=== PATIENT | female | born 1980 | race Caucasian/White ===

== ENCOUNTER → 2018-11-20 14:14 | Outpatient (CLI) | payer OTHER, SELFPAY | PROVIDERS: Registered Nurse; PCP Family Medicine; Visit Provider Family Medicine | DX: K21.9 Gastro-esophageal reflux disease without esophagitis (principal) | CPT/HCPCS: 83013 ==

== ENCOUNTER → 2018-11-24 09:01 | Outpatient (CLI) | payer OTHER, SELFPAY ==
[2018-11-24 09:57] LABS: Cholesterol 205 mg/dL (140-199); Glucose 89 mg/dL (70-100); HDL Cholesterol 42 mg/dL (40-60); LDL Cholesterol Calculated 141 mg/dL (<100); Triglycerides 108 mg/dL (35-150)
[2018-11-24 10:53] LABS: Thyroid Stimulating Hormone 1.25 uIU/mL (0.47-4.68)
== END ==
PROVIDERS: PCP Family Medicine; Visit Provider Family Medicine
DX: E78.2 Mixed hyperlipidemia (principal); Z13.0 Encounter for screening for diseases of the blood and blood-forming organs and certain disorders involving the immune mechanism; Z13.29 Encounter for screening for other suspected endocrine disorder
CPT/HCPCS: 36415; 80061; 82947; 84443

== ENCOUNTER 2018-11-28 19:13 | Emergency (ER) | payer OTHER, SELFPAY ==
[2018-11-28 19:15] VITALS: BP 134/82; PULSE 78; RESP 15; TEMP 36.8; O2SAT 100; BMI 25.8
--- NOTE | 2018-11-28 19:22 | DI.RAD.S_ITS ---
PROCEDURE: XR CHEST 1V INDICATIONS: chest pain TECHNIQUE: One view of the chest was acquired. COMPARISON: [facility], , CHEST 2 VIEW, 11/04/2012, 13:32. FINDINGS: Surgical changes and devices: None. Lungs and pleura: Lungs are clear. No pleural effusions or pneumothorax. Mediastinum: Mediastinal contours appear normal. Heart size is normal. Bones and chest wall: No suspicious bony lesions. Overlying soft tissues appear unremarkable. IMPRESSION: No acute pulmonary process. Dictated by: Liane Shanks M.D. on 11/28/2018 at 19:52 Approved by: Liane Shanks M.D. on 11/28/2018 at 19:52
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
[2018-11-28 19:58] LABS: Add Manual Diff / Slide Review NO; Basophils Absolute Auto 0 /uL (0-100); Basophils Percent Auto 0.3 % (0-2); Eosinophils Absolute Auto 100 /uL (0-450); Eosinophils Percent Auto 1.4 % (2-4); Hematocrit 39.9 % (36-46); Hemoglobin 13.5 g/dL (12.0-16.0); Lymphocytes Absolute Auto 3300 /uL (1100-4500); Lymphocytes Percent Auto 48.3 % (25-40); Mean Corpuscular HGB Conc 33.8 % (30-36); Mean Corpuscular Hemoglobin 30.1 PG (26-34); Monocytes Absolute Auto 600 /uL (0-900); Monocytes Percent Auto 8.1 % (3-14); Neutrophils Absolute Auto 2900 /uL (1500-7000); Neutrophils Percent Auto 41.9 % (50-75); Platelet Count 196 X10^3/uL (150-400); Red Blood Cell Count 4.48 X10^6/uL (4.0-5.2); Red Cell Distribution Width 12.7 % (11.6-14.8); White Blood Cell Count 6.9 X10^3/uL (4.5-11.0)
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
[2018-11-28 20:05] LABS: Prothrombin Time 11.2 SECONDS (10.1-12.7)
[2018-11-28 20:07] LABS: PTT Partial Thromboplastin Tim 30 SECONDS (26.4-36.2)
[2018-11-28 20:10] LABS: Alanine Aminotransferase 29 IU/L (9-52); Albumin 4.6 g/dL (3.5-5.0); Albumin Globulin Ratio 1.6 (1.0-2.8); Alkaline Phosphatase 68 U/L (38-126); Aspartate Aminotransferase 21 IU/L (14-36); BUN Creatinine Ratio 22.9 (6-22); Bilirubin Total 0.3 mg/dL (0.2-1.3); Blood Urea Nitrogen 16 mg/dL (7-17); Calcium 9.4 mg/dL (8.4-10.2); Carbon Dioxide 26 mmol/L (22-32); Chloride 101 mmol/L (98-107); Creatine Kinase 74 U/L (30-135); Estimated Glomerular Filt Rate > 60.0 mL/min (>60); Globulin 2.8 g/dL (1.7-4.1); Glucose 104 mg/dL (70-100); HEMOLYSIS < 15 (0-50); Lipase 83 U/L (23-300); Potassium 3.3 mmol/L (3.4-5.1); Sodium 138 mmol/L (137-145); Total Protein 7.4 g/dL (6.3-8.2)
[2018-11-28] MEDS: MAG HYDROX/ALUMINUM/SIMETH SUS 20 ML, LIDOCAINE VISCOUS 2% 15 ML PO (20:12)
[2018-11-28 20:21] LABS: Troponin I < 0.012 ng/mL (0.01-0.034)
[2018-11-28 20:27] LABS: D Dimer < 200 ng/mL (<230)
--- NOTE | 2018-11-28 21:46 | PC.NURSE ---
I agree with all assessments and treatments completed by the student nurse.
== END 2018-11-28 21:48 | disposition home or self-care (01) ==
PROVIDERS: Emergency Medicine; Emergency Provider Internal Medicine; PCP Family Medicine
DX: K21.9 Gastro-esophageal reflux disease without esophagitis (principal)
CPT/HCPCS: 71045; 80053; 82550; 83690; 84484; 85025; 85379; 85610; 85730; 93005; 93010; 99282; 99285

== ENCOUNTER 2019-05-27 21:28 | Emergency (ER) | payer OTHER, SELFPAY ==
[2019-05-27 21:36] VITALS: BP 127/79; PULSE 89; RESP 14; TEMP 36.7; O2SAT 98
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
== END 2019-05-27 21:54 | disposition home or self-care (01) ==
PROVIDERS: Emergency Provider Emergency Medicine; Family Provider Family Medicine; PCP Family Medicine
DX: T16.1XXA Foreign body in right ear, initial encounter (principal)
CPT/HCPCS: 99282

== ENCOUNTER → 2019-06-09 11:09 | Outpatient (CLI) | payer OTHER, SELFPAY ==
[2019-06-09 12:48] LABS: BUN Creatinine Ratio 16.3 (6-22); Blood Urea Nitrogen 13 mg/dL (7-17); Calcium 10.1 mg/dL (8.4-10.2); Carbon Dioxide 29 mmol/L (22-32); Chloride 102 mmol/L (98-107); Estimated Glomerular Filt Rate > 60.0 mL/min (>60); Glucose 87 mg/dL (70-100); HEMOLYSIS < 15 (0-50); Potassium 5.1 mmol/L (3.4-5.1); Sodium 141 mmol/L (137-145)
== END ==
PROVIDERS: PCP Family Medicine; Visit Provider Hospitalist
DX: R42 Dizziness and giddiness (principal)
CPT/HCPCS: 36415; 80048; 84443

== ENCOUNTER 2019-06-30 09:58 | Emergency (ER) | payer OTHER, SELFPAY ==
[2019-06-30 10:00] VITALS: BP 125/80; PULSE 79; RESP 22; TEMP 36.3; O2SAT 99
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
--- NOTE | 2019-06-30 10:41 | DI.RAD.S_ITS ---
PROCEDURE: XR CHEST 1V INDICATIONS: palpitations TECHNIQUE: One view of the chest was acquired. COMPARISON: [facility], CR, XR CHEST 1V, 11/28/2018, 19:26. FINDINGS: Surgical changes and devices: None. Lungs and pleura: Lungs are clear. No pleural effusions or pneumothorax. Mediastinum: Mediastinal contours appear normal. Heart size is normal. Bones and chest wall: No suspicious bony lesions. Overlying soft tissues appear unremarkable. IMPRESSION: No acute process. Dictated by: Katherine Guthrie M.D. on 06/30/2019 at 11:01 Approved by: Katherine Guthrie M.D. on 06/30/2019 at 11:01
[2019-06-30 10:52] LABS: Add Manual Diff / Slide Review NO; Basophils Absolute Auto 0 /uL (0-100); Basophils Percent Auto 0.4 % (0-2); Eosinophils Absolute Auto 100 /uL (0-450); Eosinophils Percent Auto 1.4 % (2-4); Hematocrit 41.4 % (36-46); Hemoglobin 14.2 g/dL (12.0-16.0); Lymphocytes Absolute Auto 2200 /uL (1100-4500); Lymphocytes Percent Auto 48.1 % (25-40); Mean Corpuscular HGB Conc 34.2 % (30-36); Mean Corpuscular Hemoglobin 30.5 PG (26-34); Mean Corpuscular Volume 89.4 fL (80-100); Monocytes Absolute Auto 500 /uL (0-900); Monocytes Percent Auto 11.4 % (3-14); Neutrophils Absolute Auto 1700 /uL (1500-7000); Neutrophils Percent Auto 38.7 % (50-75); Platelet Count 221 X10^3/uL (150-400); Red Blood Cell Count 4.64 X10^6/uL (4.0-5.2); Red Cell Distribution Width 12.8 % (11.6-14.8); White Blood Cell Count 4.5 X10^3/uL (4.5-11.0)
[2019-06-30 11:21] LABS: Alanine Aminotransferase 18 IU/L (9-52); Albumin 4.4 g/dL (3.5-5.0); Albumin Globulin Ratio 1.5 (1.0-2.8); Alkaline Phosphatase 63 U/L (38-126); Aspartate Aminotransferase 24 IU/L (14-36); Bilirubin Total 0.5 mg/dL (0.2-1.3); Blood Urea Nitrogen 12 mg/dL (7-17); Calcium 9.3 mg/dL (8.4-10.2); Carbon Dioxide 28 mmol/L (22-32); Chloride 103 mmol/L (98-107); Creatine Kinase 75 U/L (30-135); Estimated Glomerular Filt Rate > 60.0 mL/min (>60); Globulin 2.9 g/dL (1.7-4.1); Glucose 101 mg/dL (70-100); HEMOLYSIS < 15 (0-50); Potassium 4.5 mmol/L (3.4-5.1); Sodium 141 mmol/L (137-145); Total Protein 7.3 g/dL (6.3-8.2)
[2019-06-30 11:33] LABS: Troponin I < 0.012 ng/mL (0.01-0.034)
[2019-06-30 11:55] VITALS: BP 128/74; PULSE 69; RESP 17; O2SAT 98
== END 2019-06-30 11:51 | disposition home or self-care (01) ==
PROVIDERS: Emergency Provider Emergency Medicine; PCP Family Medicine
DX: R00.2 Palpitations (principal)
CPT/HCPCS: 36415; 71045; 80053; 82550; 84484; 85025; 93005; 93010; 93041; 99283; 99285

== ENCOUNTER → 2019-07-02 13:54 | Outpatient (CLI) | payer OTHER, SELFPAY ==
--- NOTE | 2019-07-24 15:51 | PM.CARDMON.1 ---
[employer] Report Referral & Results Date Patient Seen: 07/02/19 Requesting provider: Jackie Last Indication: Palpitation Duration of monitoring (days): 11 Diary information: Refer 44 patient triggered events and 11 patient diary entries. These patient recorded events were associated with sinus rhythm and ventricular ectopic beats Data: Minimum heart rate identified was 46 beats per minute at 05:34 on 07/10/2019 Maximum heart rate was 170 beats per minute at 12:58 on 07/07/2019 and was sinus tachycardia Less than 1% of identified beats rather ventricular supraventricular ectopic in origin Impression: Based on patient triggered events symptoms may or may not be related to relatively rare PVCs. Clinical correlation suggested No other more serious dysrhythmias identified on this study
== END ==
PROVIDERS: PCP Family Medicine; Visit Provider Hospitalist
DX: R00.2 Palpitations (principal)
CPT/HCPCS: 0296T; 0298T

== ENCOUNTER → 2020-02-05 11:43 | Outpatient (CLI) | payer OTHER, SELFPAY ==
[2020-02-05 13:19] LABS: Prolactin 9.2 ng/mL (3.0-18.6)
== END ==
PROVIDERS: PCP Family Medicine; Referring Provider Specialist; Visit Provider Specialist
DX: N64.3 Galactorrhea not associated with childbirth (principal)
CPT/HCPCS: 36415; 84146

== ENCOUNTER → 2020-02-08 09:41 | Outpatient (CLI) | payer OTHER, SELFPAY ==
--- NOTE | 2020-02-08 09:43 | DI.MG.S_ITS ---
BILATERAL DIGITAL DIAGNOSTIC MAMMOGRAM 3D/2D: 02/08/2020 CLINICAL: Baseline exam. Bilateral green discharge. No prior exams were available for comparison. The tissue of both breasts is extremely dense, which lowers the sensitivity of mammography. No significant masses, calcifications, or other findings are seen in either breast. IMPRESSION: INCOMPLETE: NEEDS ADDITIONAL IMAGING EVALUATION There is no abnormality seen in either breast to correspond with the discharge from the nipple in the sub-areolar depth, however, ultrasound is recommended. This exam was interpreted at Station ID: [id number]. NOTE: For mammograms, a report in lay terms will be sent to the patient. Approximately 15% of breast malignancies will not be visualized mammographically. In the management of a palpable breast mass, a negative mammogram must not discourage biopsy of a clinically suspicious lesion. Electronically Signed By: Robetr peñaloza/dustin:02/08/2020 10:37:17 ACR BI-RADS Category 0: Incomplete [id number]
== END ==
PROVIDERS: PCP Family Medicine; Referring Provider Specialist; Visit Provider Specialist
DX: R92.2 Inconclusive mammogram (principal); N64.3 Galactorrhea not associated with childbirth
CPT/HCPCS: 77066; G0279

== ENCOUNTER → 2020-02-09 07:35 | Outpatient (CLI) | payer OTHER, SELFPAY ==
--- NOTE | 2020-02-09 07:36 | DI.US.S_ITS ---
ULTRASOUND OF LEFT BREAST: 02/09/2020 CLINICAL: Bilat green nipple discharge x 5 days. Comparison is made to exam dated: 02/08/2020 [facility]. Color flow and real-time ultrasound of the left breast were performed on the areas of interest. Tadeo scale images of the real-time examination were reviewed. There is mild duct ectasia in the left breast central to the nipple posterior depth. IMPRESSION: BENIGN There is no sonographic evidence of malignancy. The duct ectasia in the left breast is benign. Clinical follow up for the non-bloody discharge recommeded. A 1 year screening mammogram is recommended. This exam was interpreted at Station ID: [id number]. Electronically Signed By: Katharine henderson/:02/09/2020 09:20:55 letter sent: Clinical Evaluation Ultrasound BI-RADS: 2 Benign
--- NOTE | 2020-02-09 07:36 | DI.US.S_ITS ---
ULTRASOUND OF RIGHT BREAST: 02/09/2020 CLINICAL: Bilat green nipple discharge x 5 days. Comparison is made to exam dated: 02/08/2020 [facility]. Color flow and real-time ultrasound of the right breast were performed on the areas of interest. Tadeo scale images of the real-time examination were reviewed. There are 2 lobulated anechoic cysts in the right breast central to the nipple anterior depth which range from 1 - 2 cm in size. IMPRESSION: BENIGN There is no sonographic evidence of malignancy. The simple cysts in the right breast are benign. There is no mammographic or sonographic abnormality seen in the right breast to correspond with the non-bloody discharge from the nipple, however, clinical followup is recommended. A 1 year screening mammogram is recommended. This exam was interpreted at Station ID: [id number]. Electronically Signed By: Katharine henderson/:02/09/2020 09:23:45 letter sent: Clinical Evaluation Ultrasound BI-RADS: 2 Benign
== END ==
PROVIDERS: PCP Family Medicine; Referring Provider Specialist; Visit Provider Specialist
DX: R92.8 Other abnormal and inconclusive findings on diagnostic imaging of breast (principal); N64.3 Galactorrhea not associated with childbirth; N60.42 Mammary duct ectasia of left breast; N60.01 Solitary cyst of right breast
CPT/HCPCS: 76642

== ENCOUNTER → 2020-08-01 14:20 | Outpatient (CLI) | payer OTHER, SELFPAY ==
--- NOTE | 2020-08-01 14:22 | DI.CT.S_ITS ---
PROCEDURE: CT SINUS SCREEN WO CON INDICATIONS: Other specified disorders of Eustachian tube, bila TECHNIQUE: Noncontrast 3.0 mm axial images acquired from the frontal sinuses to the mid-sella, with coronal and sagittal reformats. For radiation dose reduction, the following was used: automated exposure control, adjustment of mA and/or kV according to patient size. COMPARISON: [facility], [place], SINUS SCREEN WO CONTRAST, 11/12/2012, 8:50. FINDINGS: Image quality: Excellent. Maxillary Sinuses: No bony remodeling or destruction. Sinuses are clear. Ethmoid Air Cells: No bony remodeling or destruction. Sinuses are clear. Sphenoid Sinuses: No bony remodeling or destruction. Sinuses are clear. Frontal Sinuses: No bony remodeling or destruction. Sinuses are clear. Ostiomeatal Complexes: Ostiomeatal complexes are patent. No Rashmi cells. Miscellaneous: Visualized intra-orbital contents are normal. Bilateral claudia bullosa are seen, left larger than right. Minimal to mild rightward nasal septal deviation is seen. IMPRESSION: Resolution of the previously seen paranasal sinus disease. Bilateral claudia bullosa, with minimal to mild rightward nasal septal deviation. Dictated by: Lokesh Manzanares M.D. on 08/01/2020 at 14:05 Approved by: Lokesh Manzanares M.D. on 08/01/2020 at 14:07
== END ==
PROVIDERS: PCP Family Medicine; Referring Provider Family Medicine; Visit Provider Otolaryngology
DX: H69.83 Other specified disorders of Eustachian tube, bilateral (principal); J32.4 Chronic pansinusitis; J34.3 Hypertrophy of nasal turbinates
CPT/HCPCS: 70486

== ENCOUNTER → 2020-09-23 15:39 | Outpatient (CLI) | payer OTHER, SELFPAY ==
--- NOTE | 2020-09-23 15:41 | DI.MRI.S_ITS ---
PROCEDURE: MR HEAD/BRAIN WO CON INDICATIONS: pressure in head, dizziness TECHNIQUE: Noncontrast axial T1 spin echo, axial T2 fast spin echo, sagittal and axial FLAIR, coronal T2 fast spin echo, axial gradient echo, axial diffusion and ADC through the brain. COMPARISON: None. FINDINGS: Image quality: Excellent. CSF Spaces: Basal cisterns are patent. No extra-axial fluid collections. Ventricles are normal in size and shape. Brain: No intracranial masses or hemorrhage. Tadeo/white matter interface is normal. Brainstem appears normal. Diffusion-weighted images demonstrate no acute ischemic insult. No chronic ischemic insults. Normal intravascular flow voids are present. Skull and face: Calvarium has normal marrow signal. Orbits appear normal. Sinuses: Sinuses and mastoids are clear. IMPRESSION: Normal for age, source of current pressure sensation is not identified. Dictated by: Jonh Ochoa M.D. on 09/23/2020 at 16:49 Approved by: Jonh Ochoa M.D. on 09/23/2020 at 16:50
== END ==
PROVIDERS: PCP Family Medicine; Referring Provider Family Medicine; Visit Provider Family Medicine
DX: R42 Dizziness and giddiness (principal); R51.9 Headache, unspecified
CPT/HCPCS: 70551

== ENCOUNTER → 2020-10-14 07:08 | Outpatient (CLI) | payer OTHER, SELFPAY ==
[2020-10-14 07:52] LABS: Add Manual Diff / Slide Review NO; Basophils Absolute Auto 0 /uL (0-100); Basophils Percent Auto 0.5 % (0-2); Eosinophils Absolute Auto 100 /uL (0-450); Eosinophils Percent Auto 2.4 % (2-4); Hematocrit 37.8 % (36-46); Hemoglobin 12.9 g/dL (12.0-16.0); Lymphocytes Absolute Auto 1800 /uL (1100-4500); Lymphocytes Percent Auto 37.6 % (25-40); Mean Corpuscular HGB Conc 34.2 % (30-36); Mean Corpuscular Hemoglobin 30.5 PG (26-34); Mean Corpuscular Volume 89.1 fL (80-100); Monocytes Absolute Auto 500 /uL (0-900); Monocytes Percent Auto 10.4 % (3-14); Neutrophils Absolute Auto 2400 /uL (1500-7000); Neutrophils Percent Auto 49.1 % (50-75); Platelet Count 205 X10^3/uL (150-400); Red Blood Cell Count 4.24 X10^6/uL (4.0-5.2); White Blood Cell Count 4.9 X10^3/uL (4.5-11.0)
[2020-10-14 08:18] LABS: Cholesterol 195 mg/dL (140-199); Glucose 101 mg/dL (70-100); HDL Cholesterol 45 mg/dL (40-60); LDL Cholesterol Calculated 127 mg/dL (<100); Triglycerides 113 mg/dL (35-150)
== END ==
PROVIDERS: PCP Family Medicine; Referring Provider Family Medicine; Visit Provider Family Medicine
DX: E78.2 Mixed hyperlipidemia (principal); R53.83 Other fatigue; R42 Dizziness and giddiness
CPT/HCPCS: 36415; 80061; 82947; 85025

== ENCOUNTER → 2021-08-22 08:48 | Outpatient (CLI) | payer OTHER, SELFPAY ==
--- NOTE | 2021-08-22 08:49 | DI.MG.S_ITS ---
BILATERAL DIGITAL DIAGNOSTIC MAMMOGRAM 3D/2D: 08/22/2021 CLINICAL: Bilateral breast discharge. Comparison is made to exams dated: 02/08/2020 mammogram, 02/09/2020 ultrasound, and 02/09/2020 ultrasound - [facility]. The tissue of both breasts is extremely dense, which lowers the sensitivity of mammography. There is an incidental new 1.2 cm round equal density asymmetry with an obscured and circumscribed margin in the right breast at 10 o'clock middle depth. This is seen in additional views. There also is a 4 mm area of grouped amorphous calcifications in the right breast central to the nipple in the retroareolar region. An underlying asymmetry is not distinctly seen. There is an incidental new 2.5 cm cluster of round asymmetries in the left breast at 12 o'clock middle depth. This is seen in additional views. No other significant masses or calcifications are seen in either breast. IMPRESSION: INCOMPLETE: NEEDS ADDITIONAL IMAGING EVALUATION The new 1.2 cm asymmetry in the right breast at 10 o'clock middle depth most likely is a cyst but remains indeterminate. An ultrasound is recommended. The 4 mm area of grouped amorphous calcifications in the right breast central to the nipple in the retroareolar region are indeterminate. An ultrasound is recommended. The new 2.5 cm cluster of round asymmetries in the left breast at 12 o'clock middle depth most likely is clustered cysts but remains indeterminate. An ultrasound is recommended. There is no abnormality seen in the left breast to correspond with the non-bloody discharge from the nipple. Ultrasound is recommended for full evaluation of this area. Bilateral breast ultrasoundwas performed immediately following this exam. This exam was interpreted at Station ID: [id number]. NOTE: For mammograms, a report in lay terms will be sent to the patient. Approximately 15% of breast malignancies will not be visualized mammographically. In the management of a palpable breast mass, a negative mammogram must not discourage biopsy of a clinically suspicious lesion. Electronically Signed By: Bailee connell/:08/22/2021 09:58:04 ACR BI-RADS Category 0: Incomplete [id number]
--- NOTE | 2021-08-22 08:49 | DI.US.S_ITS ---
LIMITED ULTRASOUND OF LEFT BREAST: 08/22/2021 CLINICAL: Patient returns today to evaluate a focal asymmetry in the left breast. Comparison is made to exams dated: 08/22/2021 mammogram, 02/09/2020 ultrasound, and 02/08/2020 mammogram - [facility]. Color flow and real-time ultrasound of the left breast 12 o'clock, and retroareolar regions were performed. Tadeo scale images of the real-time examination were reviewed. There is a 2.9 cm x 2.5 cm x 1.2 cm cluster of three cysts in the left breast at 12 o'clock middle depth 5 cm from the nipple. This correlates with mammography findings. Two cysts are simple, and one, measuring 1.1 cm demonstrates low level echos, lobulated margin, and a partial septation. Color flow imaging demonstrates that there is no vascularity present. IMPRESSION: PROBABLY BENIGN The 2.9 cm x 2.5 cm x 1.2 cm cluster of cysts in the left breast is probably benign. No correlate to the non-bloody nipple discharge. A follow-up left ultrasound in 6 months is recommended to demonstrate stability of the complicated cyst in the cyst cluster Findings and recommendations were conveyed to the patient at time of exam. . This exam was interpreted at Station ID: [id number]. Electronically Signed By: Bailee connell/:08/22/2021 11:06:14 Entry: - 08/23/2021 09:51:09 Ultrasound BI-RADS: 3 Probably benign
--- NOTE | 2021-08-22 08:49 | DI.US.S_ITS ---
ULTRASOUND OF RIGHT BREAST: 08/22/2021 CLINICAL: Patient returns today to evaluate a focal asymmetry in the right breast. Comparison is made to exams dated: 08/22/2021 mammogram, 02/09/2020 ultrasound, and 02/08/2020 mammogram - [facility]. Color flow and real-time ultrasound of the right breast were performed. Tadeo scale images of the real-time examination were reviewed. There is a benign 1 cm x 0.9 cm x 0.7 cm round cyst in the right breast at 10 o'clock middle depth 6 cm from the nipple. This round cyst is anechoic. This correlates with mammography findings. Color flow imaging demonstrates that there is no vascularity present. No finding to explain nipple discharge or a correlate to the retroareolar calcifications. IMPRESSION: PROBABLY BENIGN The 1 cm cyst in the right breast corresponds to the mammogram finding, is consistent with a simple cyst and is benign. There is no sonographic correlate to the non-bloody nipple discharge. There is no abnormality seen in the right breast to correspond with the mammography finding of faint calcificationsin the sub-areolar depth. A follow-up right mammogram in 6 months is recommended to demonstrate stability of this finding. Findings and recommendations were conveyed to the patient at time of exam. This exam was interpreted at Station ID: [id number]. Electronically Signed By: Bailee connell/:08/22/2021 10:37:21 letter sent: Followup Recommended Ultrasound BI-RADS: 3 Probably benign
== END ==
PROVIDERS: PCP Family Medicine; Referring Provider Family Medicine; Visit Provider Family Medicine
DX: N64.52 Nipple discharge (principal); R92.8 Other abnormal and inconclusive findings on diagnostic imaging of breast; N60.01 Solitary cyst of right breast; R92.1 Mammographic calcification found on diagnostic imaging of breast; N60.02 Solitary cyst of left breast
CPT/HCPCS: 76642; 77066; G0279